=== PATIENT | male | born 2000 | race Hispanic/Latino ===

== ENCOUNTER 2022-08-05 08:33 | Emergency (ER) | payer OTHER ==
[~2022-08-05] VITALS: Ht 175.3 cm; Wt 68.0 kg
[2022-08-05] MEDS ORDERED: AMOX500C2 PO (11:11)
[2022-08-05 11:15] VITALS: BP 124/72
== END 2022-08-05 11:29 | disposition home or self-care (01) ==
LOC: EDH 08:33
DX: L73.2 Hidradenitis suppurativa (principal); Z79.2 Long term (current) use of antibiotics